=== PATIENT | female | born 1980 | race Caucasian/White ===

== ENCOUNTER 2025-11-01 14:57 | Outpatient (CLI) | payer OTHER, MEDICAID, SELFPAY | END 2025-11-01 14:58 | disposition home or self-care (01) | LOC: AMB 11-06 22:46 | PROVIDERS: PCP Physician Assistant; Visit Provider Family Medicine | DX: S99.911A Unspecified injury of right ankle, initial encounter (principal); V43.53XA Car driver injured in collision with pick-up truck in traffic accident, initial encounter; Y92.410 Unspecified street and highway as the place of occurrence of the external cause | CPT/HCPCS: A0425; A0427 ==